=== PATIENT | male | born 1965 | race African-American/Black ===

== ENCOUNTER 2017-03-17 00:37 | Emergency (ER) | payer SELFPAY ==
[~2017-03-17] VITALS: Ht 190.5 cm; Wt 88.0 kg
[2017-03-17 00:40] VITALS: BP 135/90; PULSE 86; RESP 16; TEMP 98; O2SAT 97
[2017-03-17] MEDS ORDERED: ALPR.5 PO (02:10)
--- NOTE | 2017-03-17 02:32 | PD ---
HPI Chief Complaint: Psychiatric Symptoms Time Seen by Provider: 02:16 Travel History International Travel<30 days: No Contact w/Intl Traveler<30days: No Traveled to known affect area: No History of Present Illness HPI 51-year-old black male presents to emergency department on a voluntary basis for psychological evaluation. The patient states that he is feeling suicidal and homicidal. He states that he will walk out in front of a train. He states that he wants to hurt people but will not elaborate. He states that he is hungry and would like something to eat. He also states that he is cold like more blankets. He claims to have sickle cell disease. Patient states that he was born here at [place] and commutes back and forth from [facility] to [place]. He has a physician in [place] that he sees for his sickle cell disease. Patient denies any current medications. He admits to substance abuse. He does cocaine and crack as well as drinks alcohol on a daily basis. He denies any acute medical complaints. He denies any toxic ingestions. [facility] Past Medical History Narrative Medical Sickle cell disease, priaprism Tetanus Vaccination: < 5 Years Past Surgical History Surgical History: No Previous Surgery Social History Alcohol Use: Yes (5+DRINKS PER DAY) Tobacco Use: Yes (1PPD) Substance Use: Yes (COCAINE SNORTING) Allergies-Medications (Allergen,Severity, Reaction): Coded Allergies: Penicillins (Verified Adverse Reaction, Severe, Hives, 03/17/17) Reported Meds & Prescriptions Reported Meds & Active Scripts Active Reported Xanax (Alprazolam) 0.5 Mg Tab 0.5 Mg PO Q6H PRN Review of Systems General / Constitutional: No: Fever Eyes: No: Visual changes HENT: No: Headaches Cardiovascular: No: Chest Pain or Discomfort Respiratory: No: Shortness of Breath Gastrointestinal: No: Abdominal Pain Genitourinary: No: Dysuria Musculoskeletal: No: Pain Skin: No Rash Neurologic: No: Weakness Psychiatric: Positive: Depression, Suicidal Ideations, Disorder of Thought, Mood Disorder, Substance Abuse, Homicidal Ideation Endocrine: No: Polydipsia Hematologic/Lymphatic: No: Easy Bruising Physical Exam Narrative GENERAL: Well-nourished, well-developed patient. SKIN: Warm and dry. HEAD: Normocephalic and atraumatic. EYES: No scleral icterus. No injection or drainage. ENT: No nasal drainage noted. Mucous membranes pink. Airway patent. NECK: Supple, trachea midline. Moves head freely without obvious discomfort. CARDIOVASCULAR: Regular rate and rhythm without murmurs, gallops, or rubs. RESPIRATORY: Breath sounds equal bilaterally. No accessory muscle use. GASTROINTESTINAL: Abdomen soft, non-tender, nondistended. EXTREMITIES: No cyanosis or edema. BACK: Nontender without obvious deformity. No CVA tenderness. NEURO: Patient is alert and oriented. no sensorimotor deficits. Nonfocal. Normal speech. PSYCH: No delusions. No auditory positive visual hallucinations. Patient claims that he is seeing "spirits". Data Data Last Documented VS Vital Signs Date Time Temp Pulse Resp B/P (MAP) Pulse Ox O2 Delivery O2 Flow Rate FiO2 03/17/17 00:40 98.0 86 16 135/90 (105) 97 Room Air Orders Orders Complete Blood Count With Diff (03/17/17 02:32) Comprehensive Metabolic Panel (03/17/17 02:32) Drug Screen, Random Urine (03/17/17 02:32) Alcohol (Ethanol) (03/17/17 02:32) MDM Medical Decision Making Medical Screen Exam Complete: Yes Emergency Medical Condition: Yes Medical Record Reviewed: Yes Differential Diagnosis MDM: High Differential diagnoses: Schizophrenia, schizoaffective disorder, bipolar, anxiety, depression, adjustment reaction, mood disorder NOS, ODD, depressive disorder NOS, dementia, dementia with agitation, psychosis NOS, substance induced mood disorder, DMDD, Asperger syndrome, infection,electrolyte abnormality, malingering. Narrative Course Mental health screening discussed with the patient. Psychiatric screen ordered. The patient here has refused laboratory testing. He has stated that if we do not feed him he is going to leave. I do not believe that the patient is truly suicidal homicidal. The patient has history substance abuse. I believe this is a malingering action on his behalf to obtain a domicile and something to eat. The patient is allowed to leave. This is malingering Diagnosis Primary Impression: Malingering Patient Instructions: General Instructions Additional Instructions: Rest. Increase fluids. Avoid alcohol. Avoid illegal substances. Follow-up with [facility] for detox. Do not operate a car or any heavy machinery under the influence of alcohol or drugs. Follow-up with a medical doctor this week. Return to the ER for emergencies Med/Other Pt SpecificInfo: No Meds Exist/No RX given Disposition: 01 DISCHARGE HOME Condition: Stable Arturo Sands Mar 17, 2017 02:32
== END 2017-03-17 04:01 | disposition home or self-care (01) ==
LOC: NEPD 00:37
DX: Z76.5 Malingerer [conscious simulation] (principal); R45.851 Suicidal ideations; D57.1 Sickle-cell disease without crisis; F17.200 Nicotine dependence, unspecified, uncomplicated; Z88.0 Allergy status to penicillin; Z79.899 Other long term (current) drug therapy
CPT/HCPCS: 99282